=== PATIENT | male | born 1995 | race Hispanic/Latino ===

== ENCOUNTER 2024-12-10 08:31 | Emergency (ER) | payer SELFPAY ==
[~2024-12-10] VITALS: Ht 175.3 cm; Wt 78.0 kg
[2024-12-10 08:39] VITALS: BP 122/80
[2024-12-10 08:45] VITALS: BP 126/76
[2024-12-10] MEDS ORDERED: LIDOcaine HCl 1% (Local Anesth.) 20 ML VIAL STI STA (08:45)
[2024-12-10] MEDS ORDERED: POVIDONE IODINE 0.5 OZ/BTL TOP ONE (08:45)
[2024-12-10] MEDS ORDERED: Diph, Acellular Pertussis, Tet 0.5 ML/VIAL (Tdap) SDV IM ONE (08:45)
[2024-12-10] MEDS ORDERED: ceFAZolin 1 GM/VIAL SDV IM ONE (08:50)
[2024-12-10] MEDS ORDERED: STERILE WATER 10 ML/VIAL SDV IM ONE (08:50)
[2024-12-10 09:00] VITALS: BP 122/82
[2024-12-10] MEDS ORDERED: CEPHALEXIN500 M1 PO (10:13)
[2024-12-10 10:25] VITALS: BP 122/82
== END 2024-12-10 10:33 | disposition home or self-care (01) | DRG 605 ==
LOC: ED 08:31
PROC: 0HQFXZZ Repair Right Hand Skin, External Approach (ICD-10-PCS; principal; 2024-12-10)
DX: S61.210A Laceration without foreign body of right index finger without damage to nail, initial encounter (principal); S62.630A Displaced fracture of distal phalanx of right index finger, initial encounter for closed fracture; W20.8XXA Other cause of strike by thrown, projected or falling object, initial encounter; Y99.0 Civilian activity done for income or pay
CPT/HCPCS: 90715; J0690